=== PATIENT | female | born 1950 | race Caucasian/White ===

== ENCOUNTER 2017-03-26 01:18 | Emergency (ER) | payer BC ==
[~2017-03-26] VITALS: Ht 157.5 cm; Wt 68.0 kg
[~2017-03-26 01:18] MED LIST: ALEVE220 M1 PO; ALPRAZOLAM PO; AMBIEN PO; AMLODIPINE BESYL5 MG PO; ANTIVERT PO; ATARAX PO; BACTRIM DS TABL1 TA1 PO; CIPRO250 MG PO; DIAZEPAM PO; EFFEXOR PO; EFFEXOR75 MG PO; ELIMITE60 G1 TOP; FLEXERIL PO; FLEXERIL10 MG PO; HYDROCODON-ACE1 EAC5 PO; HYDROCODONE-APA1 T30; KLONOPIN1 MG PO; LISINOPRIL PO; LOPRESSOR PO; MEDROL; METOPROLOL TAR25 MG PO; NEURONTIN600 MG PO; NORCO 10-325 TA1 TAB PO; NORCO 10/325 TA1 TAB PO; NORCO 10/3251 TAB PO; NORCO 5/325 TAB1 TAB PO; NORCO1 TAB 10/3 PO; NORVASC PO; PHENERGAN25 M1 PO; ROBAXIN500 MG PO; ULTRAM PO; VISTARIL PO; VISTARIL50 MG PO; VITAMIN B 12 PO; XANAX1 MG PO; ZOFRAN PO
[2017-03-26] MEDS ORDERED: MOTRIN600 MG PO (01:37)
== END 2017-03-26 03:15 | disposition home or self-care (01) ==
LOC: SED 01:18
DX: M13.861 Other specified arthritis, right knee (principal); F41.9 Anxiety disorder, unspecified; I10 Essential (primary) hypertension; Z90.710 Acquired absence of both cervix and uterus; Z79.899 Other long term (current) drug therapy
CPT/HCPCS: 99283